=== PATIENT | male | born 2005 | race Caucasian/White ===

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

== ENCOUNTER 2024-03-21 19:27 | Emergency (ER) | payer OTHER, SELFPAY ==
--- OUTSIDE RECORDS SUMMARY | 2024-03-21 19:29 | XMS_ITS | Clinical Summary ---
Author Organization [facility] Address [address] [place] [address] Care Team Providers Care Cover Maker Name Role Phone Armando Vera MD Primary Care Provider [phone] Allergies No known active allergies Medications Medication Sig Dispensed Refills Start Date End Date Status ALBUTEROL IN Inhale into lungs. Active CETIRIZINE HCL (ZYRTEC PO) Take by mouth. Active FLUTICASONE PROPIONATE (FLONASE NA) Apply into the nose. Active FLUoxetine (PROZAC) 20 mg capsule TAKE 1 CAPSULE BY MOUTH AT BEDTIME 08/22/2021 Active albuterol HFA (PROAIR) 90 mcg/actuation oral inhaler as needed 07/12/2015 Active omeprazole (PRILOSEC) 40 mg delayed release capsule Take 1 Capsule (40 mg) by mouth once a day -take 30 mins before dinner 30 Capsule 2 10/01/2021 Active Active Problems Problem Noted Date Diagnosed Date Pilonidal cyst without abscess 08/07/2021 Family History Medical History Relation Name Comments GERD Maternal Grandfather Relation Name Status Comments Maternal Grandfather Social History Tobacco Use Types Packs/Day Years Used Date Smoking Tobacco: Never Assessed Sex and Gender Information Value Date Recorded Sex Assigned at Not on file Gender Identity Not on file Sexual Orientation Not on file Last Filed Vital Signs Vital Sign Reading Time Taken Comments Blood Pressure 121/60 02/01/2022 3:35 PM EST Pulse 100 02/01/2022 3:35 PM EST Temperature 36.4 C (97.5 F) 02/01/2022 3:35 PM EST Respiratory Rate 16 02/01/2022 3:35 PM EST Oxygen Saturation 100% 02/01/2022 3:35 PM EST Inhaled Oxygen Concentration - - Weight 148.7 kg (327 lb 13. 2 oz) 08/29/2022 1:37 PM EDT Height 184.5 cm (6' 0.64) 02/01/2022 1 0:00 AM EST Body Mass Index 43.68 02/01/2022 10:00 AM EST Body Mass Index Percentile 99.84% 08/29/2022 1:3 7 PM EDT Growth Chart: CDC (Boys, 2-2 0 Years) Plan of Treatment Health Maintenance Due Date Last Done Comments COVID-19 Vaccine (2023- season) 2023 08/10/2021, 07/01/2021 Influenza Vaccine (#1) 2023 9, 12/09/2016, 11/25/2013, Additional history exists Pneumococcal Vaccine (Combined) Aged Out 10/01/2005, 01/22/2005, 2004, Additional history exists No longer eligible based on patient's age to complete this topic Care Teams Cover Maker Relationship Specialty Start Date End Date Armando Vera MD [address] [place] [address] PCP - General Pediatrics 07/04/21
--- OUTSIDE RECORDS SUMMARY | 2024-03-21 19:29 | XMS_ITS | Encounter Summary ---
Author Organization [facility] [place] [address] Care Team Providers Care Edge Inker Uppers Name Role Phone Md Day[facility] Primary Care Provider [phone] Reason for Visit * Reason Onset Date Comments VOMITING 03/21/2024 Encounter Details Date Type Department Care Team (Late st Contact Info) Description 03/21/2024 Telephone Call Center [address] [place], [place] [id number] Staff, Support VOMITING Social History Tobacco Use Types Packs/Day Years Used Date Smoking Tobacco: Never Passive Smoke Exposure: Never Smokeless Tobacco: Never Alcohol Use Standard Drinks/Week Comments No 0 (1 standard drink = 0.6 oz pur e alcohol) Substance Use Types Use/Week Comments No Sex and Gender Information Value Date Recorded Sex Assigned at Not on file Gender Identity Not on file Sexual Orientation Not on file documented as of this encounter Miscellaneous Notes * Telephone Encounter - Bruce Moncada RN, R.N. - 03/21/2024 7:34 PM EST ADVICE CALL NOTE Action Requested from Provider: None Guideline Recommended and Member Disposition: [facility] Emergent: (30 min to 2 hours) Telephone advice given AMA Statement for 911/Emergent/Semi-Emergent Patient has refused advice given. The following information was provided: It is possible you are experiencing a harmful medical condition for which the location and/or time frame you want to receive care may not be safe place for your problem. Any delay in care such as waiting for an appointment or being seen at the wrong place could be harmful to yourhealth. It is your right to refuse my recommendation. I just want to be sure you understand. Do youunderstand? Yes Chief Complaint: Mom calling for 18 year old out of town positive for flu Type A c/o vomiting x 2 ,fever 103 10 minutes ago ,on Tamiflu since today .Temp 103.7 when checked again on the phone . Feels lightheaded at times .Unable to keep fluids down . Patient instructions:Advised closest ER or UC with sheet pile driver operator . If emergency call 911. CALLER ADVICE UNDERSTANDING/AGREEMENT: Member given opportunity to ask questions/make comments. Yes Member provided Teach back/ advice instructions. Yes documented in this encounter Plan of Treatment Not on file documented as of this encounter Visit Diagnoses Not on filedocumented in this encounter Care Teams Edge Inker Uppers Relationship Specialty Start Date End Date Md Day[facility] DEPARTMENT OF PEDIATRICS [address] [place] [address] PCP - General Pediatrics 12/11/23 documented as of this encounter
--- OUTSIDE RECORDS SUMMARY | 2024-03-21 19:29 | XMS_ITS | Encounter Summary ---
Author Organization [facility] [place] [address] Care Team Providers Care Spanish Literature Professor Name Role Phone Md Dayne [facility] Primary Care Provider [phone] Reason for Visit * Reason Comments LUMP Per patient, sister noticed bumps on the sides of each foot last night. Patient unsure of how long they have been there. No pain. Encounter Details Date Type Department Care Team (Late st Contact Info) Description 02/13/2024 10:30 AM EST Office Visit [facility] [address] [place] [address] Md Dayne [facility] DEPARTMENT OF PEDIATRICS [address] [place], [place] [id number] GANGLION CYST Social History Tobacco Use Types Packs/Day Years [...] on file documented as of this encounter Last Filed Vital Signs Vital Sign Reading Time Taken Comments Blood Pressure 121/71 02/13/2024 11:01 AM EST Pulse 94 02/13/2024 11:01 AM EST Temperature 36.7 C (98 F) 02/13/2024 11:01 AM EST Respiratory Rate 20 02/13/2024 11:0 1 AM EST Oxygen Saturation 98% 02/13/2024 11: 01 AM EST Inhaled Oxygen Concentration - - Weight 121.5 kg (267 lb 12.8 oz) 2024 11:01 AM EST Height 181.6 cm (5' 11.5) 02/13/2024 1 1:01 AM EST Body Mass Index 36.83 02/13/2024 11:01 AM EST documented in this encounter Patient Instructions * Patient Instructions* Md Dayne [facility] - 02/13/2024 11:28 AM EST Images from the original note were not included. Patient Education [facility] Care Instructions Ganglions in Children: Care Instructions Overview A ganglion is a small sac, or cyst, filled with a clear fluid that is like jelly. A ganglion may look like a bump on the hand or wrist. It also can appear on the feet, ankles, knees, or shoulders. Itis not cancer. A ganglion can grow out of the protective area, or capsule, around a joint. It also can grow on a tendon sheath, which covers the ropelike tendons that connect muscle to bone. A ganglion may hurt or cause numbness if it presses on a nerve. Many ganglions do not need treatment, and they often go away on their own. But if a ganglion hurts,causes numbness, or limits activity, the doctor may want to drain it with a needle and syringe or remove it with minor surgery. Follow-up care is a hardy part of your child's treatment and safety. Be sure to make and go to all appointments, and call your doctor if your child is having problems. It's also a good idea to know your child's test results and keep a list of the medicines your child takes. How can you care for your child at home? Have your child wear a wrist or finger splint as directed by the doctor. It will keep the wrist or hand from moving and help reduce the fluid in the cyst. This may be all your child needs for the ganglion to shrink and go away. Do not smash a ganglion with a book or other heavy object. You may break a bone or otherwise injureyour child's wrist by trying this folk remedy, and the ganglion may return anyway. Do not try to drain the fluid by poking the ganglion with a pin or any other sharp object. You could cause an infection. When should you call for help? Call your doctor now or seek immediate medical care if: Your child has signs of infection, such as: Increased pain, swelling, warmth, or redness. Red streaks leading from the cyst. Pus draining from the cyst. A fever. Watch closely for changes in your child's health, and be sure to contact your doctor if: Your child has increasing pain. Your child's ganglion is getting larger. Your child still has pain or numbness from a ganglion. Where can you learn more? Go to https://[employer].org/health Enter Y986 in the search box to learn more about Ganglions in Children: Care Instructions. Current as of: December 19, 2021 Content Version: 13.6 ?? [employer]. Care instructions adapted under license by your healthcare professional. If you have questions about a medical condition or this instruction, always ask your healthcare professional. [employer] disclaims any warranty or liability for your use of this information. documented in this encounter Progress Notes * Md Dwayne Oscar - 02/13/2024 11:17 AM EST SUBJECTIVE: Erich Cross is a 18 year old old male who presents today brought by self, with complaints of: bumps on feet. Duration: unsure Sister noticed it last night No pain PMHx: negative pertinent to this illness No outpatient medications have been marked as taking for the 02/13/24 encounter (Office Visit) with Md Dwayne Oscar. ALLERGIES: Patient has no known allergies. Review Of Systems: MUSCULOSKELETAL: bumps on top-lateral side of feet, Denies: pain OBJECTIVE: BP 121/71 (BP Location: LA-LEFT ARM, BP Patient Position: SITTING, Cuff Size: Large Adult) Pulse 94 Temp 36.7 ??C (98 ??F) (Oral) Resp 20 Ht 1.816 m (5' 11.5) Wt 121.5 kg (267 lb 12.8 oz) SpO2 98% BMI 36.83 kg/m?? Body mass index is 36.83 kg/m??. General: well appearing MS: With plantar flexion of feet can see a bump on each feet - superior-lateral. Non-tender, not firm Erich was seen today for lump. Diagnoses and all orders for this visit: GANGLION CYST Advised observation Follow up if becomes painful or uncomfortable - will refer to ortho Dwayne Oscar MD 02/13/2024 11:17 AM * Taiwo Zaragoza RN - 02/13/2024 10:59 AM EST PROACTIVE CARE ACTIONS Erich Cross is a 18 year old male Chief Complaint Patient presents with LUMP Per patient, sister noticed bumps on the sides of each foot last night. Patient unsure of how long they have been there. No pain. Wt Readings from Last 3 Encounters: 02/13/24 121.5 kg (267 lb 12.8 oz) (>99%, Z= 2.67)* 10/04/23 141.1 kg (311 lb) (>99%, Z= 3.17)* 07/21/23 144.1 kg (317 lb 11.2 oz) (>99%, Z= 3.22)* * Growth percentiles are based on CDC (Boys, 2-20 Years) data. GENERAL: Patient verified with two patient identifiers. Allergies including drugs, food, and latex reviewed and updated. Blood pressure %mikey are not available for patients who are 18 years or older. TOBACCO USE/EXPOSURE TO SMOKE: No tobacco use or exposure to second hand smoke TAIWO ZARAGOZA RN 02/13/2024 11:05 AM documented in this encounter Plan of Treatment Not on file documented as of this encounter Visit Diagnoses Diagnosis GANGLION CYST documented in this encounter Care Teams Spanish Literature Professor Relationship Specialty Start Date End Date Md Dwayne Oscar DEPARTMENT OF PEDIATRICS [address] [facility] [address] PCP - General Pediatrics 12/11/23 documented as of this encounter
--- OUTSIDE RECORDS SUMMARY | 2024-03-21 19:29 | XMS_ITS | Patient Health Record ---
Author Organization [facility] Address [address] [place] [address] Care Team Providers Care Program Admin Name Role Phone Jose A Augustine Primary Care Provider ALLERGIES No Known Allergies REASON FOR REFERRAL No Information MEDICATIONS Medication SIG (Take, Route, Fr equency, Duration) Notes Start Date End Date Status Albuterol Active FLUoxetine HCl 20 MG 1 capsule Orally be dtime for 30 day(s) Active SOCIAL HISTORY Sex Assigned At : Social History Observation Description Sex Assigned At Unknown Alcohol Screen (Audit-C) Question Answer Notes Did you have a drink containing alcohol in the p ast year? No Points 0 Interpretation Negative Tobacco use other than smoking: Question Answer Notes Are you an other tobacco user? No Section Notes: _ __ _ Erich lives at home with mother, maternal grandparents. He has a sister who is 18 years old at time of initial assessment. She is in collage. Erich's parents when he was 11 years old. Father left the home when Erich was 7 years old. Erich visits his father once every other week, but the relationship is distan. _ _- FALL 2021 : main [employer] at [email or web address]. Plays [employer] & track and field. He is a member of [employer]. _ __ _ Aspires to be in the future : No sure ... no major ideas. _ _- THREE WISHES : 1) Can not. think of anything _ _- _ __ _ Erich lives at home with mother, maternal grandparents. He has a sister who is 18 years old at time of initial assessment. She is in collage. Erich's parents when he was 11 years old. Father left the home when Erich was 7 years old. Erich visits his father once every other week, but the relationship is distan. _ _- FALL 2021 : main stream at [facility] [employer]. Plays [employer] & track and field. He is a member of [employer]. _ __ _ Aspires to be in the future : No sure ... no major ideas. _ _- THREE WISHES : 1) Can not. think of anything _ _- _ __ _ Erich lives at home with mother, maternal grandparents. He has a sister who is 18 years old at time of initial assessment. She is in collage. Erich's parents when he was 11 years old. Father left the home when Erich was 7 years old. Erich visits his father once every other week, but the relationship is distan. _ _- Accepted to [employer] in [place] with football scholarship. Plays [employer] & [employer] and field. He is a member of [employer]. _ __ _ _ __ _ Erich lives at home with mother, maternal grandparents. He has a sister who is 18 years old at time of initial assessment. She is in collage. Erich's parents when he was 11 years old. Father left the home when Erich was 7 years old. Erich visits his father once every other week, but the relationship is distan. _ _- SPRING 2021 : main stream at [facility] [employer]. Plays [employer] & track and field. He is a member of [employer]. _ __ _ Aspires to be in the future : No sure ... no major ideas. _ _- THREE WISHES : 1) Can not. think of anything _ _- _ __ _ Erich lives at home with mother, maternal grandparents. He has a sister who is 18 years old at time of initial assessment. She is in collage. Erich's parents when he was 11 years old. Father left the home when Erich was 7 years old. Erich visits his father once every other week, but the relationship is distan. _ _- SPRING 2021 : main [employer] at [employer] [facility]. [employer]ays [employer]. He is a member of [employer]. _ __ _ Aspires to be in the future : No sure ... no major ideas. _ _- THREE WISHES : 1) Can not. think of anything _ _- _ __ _ Erich lives at home with mother, maternal grandparents. He has a sister who is 18 years old at time of initial assessment. She is in collage. Erich's parents when he was 11 years old. Father left the home when Erich was 7 years old. Erich visits his father once every other week, but the relationship is distan. _ _- SPRING 2021 : main stream at [facility]. Plays [employer]. He is a member of [employer]. _ __ _ Aspires to be in the future : No sure ... no major ideas. _ _- THREE WISHES : 1) Can not. think of anything _ _- _ __ _ Erich lives at home with mother, maternal grandparents. He has a sister who is 18 years old at time of initial assessment. She is in collage. Erich's parents when he was 11 years old. Father left the home when Erich was 7 years old. Erich visits his father once every other week, but the relationship is distan. _ _- SPRING 2021 : main stream at [facility]. Plays [employer] field. He is a member of [employer]. _ __ _ Aspires to be in the future : No sure ... no major ideas. _ _- THREE WISHES : 1) Can not. think of anything _ _- _ __ _ Erich lives at home with mother, maternal grandparents. He has a sister who is 18 years old at time of initial assessment. She is in collage. Erich's parents when he was 11 years old. Father left the home when Erich was 7 years old. Erich visits his father once every other week, but the relationship is distan. _ _- SPRING 2021 : main stream at [facility]. Plays [employer] and field. He is a member of [employer]. _ __ _ Aspires to be in the future : No sure ... no major ideas. _ _- THREE WISHES : 1) Can not. think of anything _ _- _ __ _ Erich lives at home with mother, maternal grandparents. He has a sister who is 18 years old at time of initial assessment. She is in collage. Erich's parents when he was 11 years old. Father left the home when Erich was 7 years old. Erich visits his father once every other week, but the relationship is distan. _ _- FALL 2021 : main stream at [facility] [employer]. Plays [employer]. He is a member of [employer]. _ __ _ Aspires to be in the future : No sure ... no major ideas. _ _- THREE WISHES : 1) Can not. think of anything _ _- _ __ _ Erich lives at home with mother, maternal grandparents. He has a sister who is 18 years old at time of initial assessment. She is in collage. Erich's parents when he was 11 years old. Father left the home when Erich was 7 years old. Erich visits his father once every other week, but the relationship is distan. _ _- SPRING 2021 : main stream at [email or web address]. Plays [employer]. He is a member of [employer]. _ __ _ Aspires to be in the future : No sure ... no major ideas. _ _- THREE WISHES : 1) Can not. think of anything _ _- PROBLEMS Problem Type ICD Code Onset Dates Problem Status W/U Status Risk SNOMED Code Notes Problem SNOW (generalized anxiety disorder) (F41.1) Active confirmed 87500833 Problem Panic disorder with agoraphobia (F40.01) Active confirmed 65620174 Problem Attention deficit disorder (ADD) without hyperactivity (F98.8) Active confirmed 55471008 Problem Major depressive disorder, recurrent, severe with psychotic features (F33.3) Active confirmed [id number] PLAN OF TREATMENT No Information Insurance Providers Payer Name Payer Address Payer Phone Subscriber Number Group Number Insured Name Patient Relationship to Insured Coverage Start Date Coverage End Date [facility] [id number] [place] [address] [id number] Erich Cross Self - patient is the insured [facility] [address] [address] [facility] [place] [address] [id number] Erich Cross Self - patient is the insured MEDICAL (GENERAL) HISTORY Medical History History ICD Code Asthma
--- OUTSIDE RECORDS SUMMARY | 2024-03-21 19:29 | XMS_ITS | Clinical Summary ---
Author Organization [facility] [place] [address] Care Team Providers Care Workers Compensation Analyst Name Role Phone Md Dayne [facility] Primary Care Provider [phone] Source Comments NOTE: The information displayed by Care Everywhere is extracted from the complete medical record and may not identify all current or past patient conditions.[facility] Allergies No known active allergies Medications Medication Sig Dispensed Refills Start Date End Date Status FLUoxetine (PROZAC) 20 mg Oral CapIndications:LEE ANN OR DEPRESSIVE DISORDER, RECURRENT EPISODE, MILD Take 1 capsule by mouth daily 30 capsule 3 08/14/2022 Active Albuterol (PROAIR/PROVENTIL/ VENTOLIN) 90 mcg/actuation Inhl HFAAIndications:IN TERMITTENT ASTHMA W ACUTE EXACERBATION Shake well and inhale 4 puffs by mouth every 4 hours as needed for cough or wheezing. 13.4 g 08/18/2023 5 Active EPINEPHrine (ADRENACLICK/EPIPE N) 0.3 mg/0.3 mL Inj AutoInjectorIndica tions:ALLERGIC REACTION, INIT Inject contents of 1 pen intramuscularly into upper thigh as needed for severe allergic reaction. Repeat dose if needed 4 Each 2 08/18/2023 Active hydrOXYzine HCL (ATARAX) 25 mg Oral TabIndications:PRU RITUS Take 1 to 2 tablets by mouth 3 to 4 times a day as needed 30 tablet 10/04/2023 08/24/202 5 Active Active Problems Problem Noted Date Diagnosed Date BMI PEDS >=95 PERCENTILE 09/12/2010 INTERMITTENT ASTHMA 04/22/2010 ALLERGIC RHINITIS 02/28/2010 Resolved Problems Problem Noted Date Diagnosed Date Resolved Date PENILE PAIN 03/16/2014 10/21/2014 FAMILY CIRCUMSTANCE 03/15/2014 08/07/19 16 Overview (03/15/2014): Sees dad ~every 3 weeks. LEFT LOWER LEG CONTUSION 11/25/201312/2014 HEARING PROBLEM 09/01/2013 08/07/2015 CONSTIPATION 04/07/2011 08/07/2015 Encounters Date Type Department Care Team Description 03/21/2024 Telephone Call Center [address], [place] [id number] Staff, Support VOMITING 02/13/2024 10:30 AM EST Office Visit [facility] [address] [place], [place] [id number] Md Dayne [facility] GANGLION CYST from Last 3 Months Immunizations Name Administration Dates Next Due COVID-19 mRNA, LNP-S, PF 12y rs-Adult (Pfizer-BioNTech, hiwot-sucrose) [place] [facility] 08/10/2021,07/01/2021 DTaP (Diphtheria, Tetanus, a cellular Pertussis) 08/01/2009,10/01/2005,01/22/2005,10/12,2004 HAV ped/adol 2 dose reno (Hepatitis A) 06/30/2006 ,08/02/2005 HBV (Hepatitis B) 04/22/2005,2004,06/30/19 05 HIB PRP-OMP (Haemophilus influenzae b) 0 10/01/2005,01/22/2005,2004,08/11 INF (Influenza) unspecified formulation 01/22/20 06,01/22/2005 INFS Pres Free 6mos-Adult (F lulaval Quadrivalent) (Influenza) 03/05/2018 INFS pres free 6mos-adult (F luarix quadrivalent) (influenza) 12/09/2016 INFs pres free 3yrs-adult (F LUARIX) (Influenza) 11/07/2012 INFs pres free 3yrs-adult (F LUZONE) (Influenza) 11/25/2013 MEN-ACYW (MENVEO) (meningoco ccal oligosaccharide ACYW-135) 08/28/2020,09/09/2016 MMR (Measles, Mumps, Rubella) 07/25/2008, 006 PCV7 (PREVNAR) (Pneumococcal conjugate, 7 valent) 10/01/2005,01/22/2005,2004,08/11 RONI-IPV (Polio, Inactivated virus) 08/01,04/22/2005,2004,08/11 Tdap (ADACEL) (Tetanus, diph theria, acellular pertussis) 09/09/2016 JA (Varicella, chickenpox) 07/25/2008, Family History Medical History Relation Comments Diabetes Maternal Grandfather Hypertension Maternal Grandfather Asthma Maternal Grandmother Hypertension Maternal Grandmother Hypertension Paternal Grandfather Hypertension Paternal Grandmother Relation Status Comments Father Alive Maternal Grandfather Alive Maternal Grandmother Alive Mother Alive Paternal Grandfather Alive Paternal Grandmother Alive Sister Alive Social History Tobacco Use Types Packs/Day Years Used Date Smoking Tobacco: Never Passive Smoke Exposure: Never Smokeless Tobacco: Never Tobacco Cessation:Counseling Given: Not Answered Alcohol Use Standard Drinks/Week Comments No 0 [...] Mass Index 36.83 02/13/2024 11:01 AM EST Plan of Treatment Health Maintenance Due Date Last Done Comments IMM HPV (9- YRS) (1 - Male 3-dose series) 06/30/2019 [place] WELL VISIT FOR 3-21 YEARS 08/15/202306/2022, 08/28/2020, 09/20/2019, Additional history exists IMM COVID-19 (6 MO AND OLDER ) (3 - 2023-25 season) 2023 08/10/2021, 07/01/2021 IMM INFLUENZA (6 MO AND OLDE R) (#1) 10/12/2023 03/05/2018, 12/09/2016, 11/25/2013, Additional history exists IMM DTAP,TDAP,TD (42 DAYS-12 0 YRS) (7 - Td or Tdap) 09/09/2026 09/09/2016, 08/01/2009, 10/01/2005, Additional history exists Care Teams Workers Compensation Analyst Relationship Specialty Start Date End Date Md Dayne [facility] DEPARTMENT OF PEDIATRICS [address] [place] [address] PCP - General Pediatrics 12/11/23
--- OUTSIDE RECORDS SUMMARY | 2024-03-21 19:29 | XMS_ITS ---
Author Organization [facility] [place] [address] Care Team Providers Care Hot Roll Laminator Name Role Phone Unavailable Unavailable Unavailable
--- OUTSIDE RECORDS SUMMARY | 2024-03-21 19:29 | XMS_ITS | Encounter Summary ---
Author Organization [facility] [place] [address] Care Team Providers Care Aba Therapist Name Role Phone Md Polina Dwyer M.D. Primary Care Pr ovider Md Armando Vera M.D. Primary Care Provider Diana vailable Adult Hct, [place] Primary Care Provider [phone] Adult Hct, [place] Primary Care Provider [phone] Md Dayne [facility] Primary Care Provider [phone] Reason for Visit * Reason Onset Date Comments PRESCRIPTION REFILL REQUESTED 12/12/2019 Encounter Details Date Type Department Care Team (Late st Contact Info) Description 12/12/2019 Telephone [facility] [address] [place] [id number] Md Polina Dwyer M.D. Pediatrics Health Care Team A [facility] [place] [address] PRESCRIPTION REFILL REQUESTED Social History Tobacco Use Types Packs/Day Years Used Date Smoking Tobacco: Never Smokeless Tobacco: Never Alcohol Use Standard Drinks/Week Comments No 0 (1 standard drink = 0.6 oz pur e alcohol) Substance Use Types Use/Week Comments No Sex and Gender Information Value Date Recorded Sex Assigned at Not on file Gender Identity Not on file Sexual Orientation Not on file documented as of this encounter Miscellaneous Notes * Telephone Encounter - Narcisa Mckenna, P.A. - 12/15/2019 10:03 AM EST New prescription sent with appropriate strength. * Telephone Encounter - Jayant Batista - 12/12/2019 2:55 PM EST Patient's mother is concerned about the epipens that were prescribed. She states that the box readsthat it is for a child weighing less than 60 pounds. Her son is 250 pounds. Thanks, Jayant Batista, [facility] Support Services documented in this encounter Plan of Treatment Not on file documented as of this encounter Visit Diagnoses Diagnosis ALLERGIC REACTION, INIT documented in this encounter Care Teams Aba Therapist Relationship Specialty Start Date End Date Md Polina Dwyer M.D. Pediatrics Health Care Team A [address] [place] [phone] PCP - General 02/15/16 10/12/20 Md Armando Vera M.D. Pediatrics Health Care Team A [address] [place] [phone] PCP - General Pediatrics 10/13/20 4 Adult Hct, [facility] Internal Medicine Health Care Team A [address] [place] [address] PCP - General Internal Medicine 09/26/23 09/26/23 Adult Hct, [place] Internal Medicine Health Care Team A [facility] [place], [place], [place] [address] PCP - General Internal Medicine 09/27/23 12/10/23 Md Dayne [facility] DEPARTMENT OF PEDIATRICS [address] [place] [address] PCP - General Pediatrics 12/11/23 documented as of this encounter
--- OUTSIDE RECORDS SUMMARY | 2024-03-21 19:30 | XMS_ITS | Encounter Summary ---
Author Organization [facility] [place] [address] Care Team Providers Care E Commerce Solution Architect Name Role Phone Md Armando Vera M.D. Primary Care Provider Diana vailable Adult Hct, [place] Primary Care Provider [phone] Adult Hct, [place] Primary Care Provider Md Dayne [facility] Primary Care Provider [phone] Encounter Details Date Type Department Care Team (Late st Contact Info) Description 06/03/2021 Telephone Call Center [address] [place] [address] Staff, Support Social History Tobacco Use Types Packs/Day Years [...] on file documented as of this encounter Plan of Treatment Not on file documented as of this encounter Visit Diagnoses Not on filedocumented in this encounter Care Teams E Commerce Solution Architect Relationship Specialty Start Date End Date Md Armando Vera M.D. PCP - General Pediatrics 10/13/20 09/25/23 Adult Hct, [facility] Health Care Team A [address] [place] [address] PCP - General Internal Medicine 09/26/23 09/26/23 Adult Hct, [place] Internal Medicine Health Care Team A [facility] [place], [place], [place] [address] PCP - General Internal Medicine 09/27/23 12/10/23 Md Dwayne Oscar DEPARTMENT OF PEDIATRICS [address] [place] [address] PCP - General Pediatrics 12/11/23 documented as of this encounter
--- OUTSIDE RECORDS SUMMARY | 2024-03-21 19:30 | XMS_ITS | Encounter Summary ---
Author Organization [facility] [place] [address] Care Team Providers Care Rubber Tubing Backer Name Role Phone Md Armando Vera M.D. Primary Care Provider Diana vailable Adult Hct, [place] Primary Care Provider [phone] Adult Hct, [place] Primary Care Provider Md Dayne [facility] Primary Care Provider Encounter Details Date Type Department Care Team (Late st Contact Info) Description 08/06/2021 Refill [facility] [address] [place] [address] Md Deyvi Arredondo M.D. Department of Pediatrics [address] [place] [address] Medications Social History Tobacco Use Types Packs/Day Years [...] as of this encounter Visit Diagnoses Diagnosis PILONIDAL CYST documented in this encounter Care Teams Rubber Tubing Backer Relationship Specialty Start Date End Date Md Armando Vera M.D. PCP - General Pediatrics 10/13/20 09/25/23 Adult Hct, [facility] Internal Medicine Health Care Team A [address] [place] [address] PCP - General Internal Medicine 09/26/23 09/26/23 Adult Hct, [facility] Medicine Health Care Team A [facility] [place], [place], [place] [address] PCP - General Internal Medicine 09/27/23 12/10/23 Md Dayne [facility] DEPARTMENT OF PEDIATRICS [address] [place] [address] PCP - General Pediatrics 12/11/23 documented as of this encounter
--- OUTSIDE RECORDS SUMMARY | 2024-03-21 19:30 | XMS_ITS | Encounter Summary ---
Author Organization [facility] [place] [address] Care Team Providers Care Licensed Insurance Sales Agent Name Role Phone Md Armando Vera M.D. Primary Care Provider Diana vailable Adult Hct, [place] Primary Care Provider [phone] Adult Hct, [place] Primary Care Provider Md Dayne [facility] Primary Care Provider Reason for Referral * Outpatient Service (Urgent) - Closed Specialty Diagnoses / Procedures Referred By Tj salas Referred To Contact Orthopaedics, Medicine Diagnoses RIGHT KNEE MEDIAL COLLATERAL LIGAMENT TEAR, INIT Procedures REFERRAL ORTHOPEDIC Md Armando Vera M.D. Pediatrics Health Care Team A [address] [place] [address] Referral ID Status Reason Start Date Expiration Date V isits Requested Visits Authorized [id number] Closed Specialty Services Required 11/20/2020 05/19/2021 1 1 Encounter Details Date Type Department Care Team (Late st Contact Info) Description 11/20/2020 Orders Only [facility] [address] [place] [address] Md Armando Vera M.D. RIGHT KNEE MEDIAL COLLATERAL LIGAMENT TEAR, INIT Social History Tobacco Use Types Packs/Day Years [...] as of this encounter Visit Diagnoses Diagnosis RIGHT KNEE MEDIAL COLLATERAL LIGAMENT TEAR, INIT documented in this encounter Care Teams Licensed Insurance Sales Agent Relationship Specialty Start Date End Date Md Armando Vera M.D. PCP - General Pediatrics 10/13/20 09/25/23 Adult Hct, [facility] Care Team A [address] [place] [address] PCP - General Internal Medicine 09/26/23 09/26/23 Adult Hct, [facility] Health Care Team A [address] [place] [address], [place] [address] PCP - General Internal Medicine 09/27/23 12/10/23 Md Dayne [facility] DEPARTMENT OF PEDIATRICS [address] [place] [address] PCP - General Pediatrics 12/11/23 documented as of this encounter
--- OUTSIDE RECORDS SUMMARY | 2024-03-21 19:30 | XMS_ITS | Encounter Summary ---
Author Organization [facility] [place] [address] Care Team Providers Care Gas And Oil Servicer Name Role Phone Md Armando Vera M.D. Primary Care Provider Diana vailable Adult Hct, [place] Primary Care Provider [phone] Adult Hct, [place] Primary Care Provider [phone] Md Dayne [facility] Primary Care Provider Encounter Details Date Type Department Care Team (Late st Contact Info) Description 12/07/2020 Orders Only [facility] [address] [place] [address] Md Marlo Petersen Department of Orthopedics [address] [place] [phone] RIGHT KNEE MEDIAL COLLATERAL LIGAMENT TEAR, INIT [...] INIT documented in this encounter Care Teams Gas And Oil Servicer Relationship Specialty Start Date End Date Md Armando Vera M.D. PCP - General Pediatrics 10/13/20 09/25/23 Adult Hct, [facility] Health Care Team A [address] [place] [address] PCP - General Internal Medicine 09/26/23 09/26/23 Adult Hct, [facility] Health Care Team A [facility] [place], [place], [place] [address] PCP - General Internal Medicine 09/27/23 12/10/23 Md Dayne [facility] DEPARTMENT OF PEDIATRICS [address] [place] [address] PCP - General Pediatrics 12/11/23 documented as of this encounter
--- OUTSIDE RECORDS SUMMARY | 2024-03-21 19:30 | XMS_ITS | Encounter Summary ---
Author Organization [facility] [place] [address] Care Team Providers Care Customer Care Professional Name Role Phone Md Armando Vera M.D. Primary Care Provider Diana vailable Adult Hct, [place] Primary Care Provider [phone] Adult Hct, [place] Primary Care Provider Md Dayne [facility] Primary Care Provider Encounter Details Date Type Department Care Team (Late st Contact Info) Description 10/01/2021 Orders Only [facility] [address] [place] [phone] Md Bert Shea M.D. Pediatrics Health Care Team A [address] [place] [address], [address] [place] [address] ACUTE SINUSITIS Social History Tobacco Use Types Packs/Day Years [...] as of this encounter Visit Diagnoses Diagnosis ACUTE SINUSITIS documented in this encounter Care Teams Customer Care Professional Relationship Specialty Start Date End Date Md Armando Vera M.D. PCP - General Pediatrics 10/13/20 09/25/23 Adult Hct, [facility] Internal Medicine Health Care Team A [address] [place] [address] PCP - General Internal Medicine 09/26/23 09/26/23 Adult Hct, [facility] Medicine Health Care Team A [facility] [place], [place], [place] [address] PCP - General Internal Medicine 09/27/23 12/10/23 Md Dayne [facility] DEPARTMENT OF PEDIATRICS [address] [place] [address] PCP - General Pediatrics 12/11/23 documented as of this encounter
--- OUTSIDE RECORDS SUMMARY | 2024-03-21 19:30 | XMS_ITS | Encounter Summary ---
Author Organization [facility] [place] [address] Care Team Providers Care President + Publisher Name Role Phone Md Armando Vera M.D. Primary Care Provider Diana vailable Adult Hct, [place] Primary Care Provider [phone] Adult Hct, [place] Primary Care Provider Md Dayne [facility] Primary Care Provider Reason for Visit * Reason Onset Date Comments VOMITING 09/11/2021 Encounter Details Date Type Department Care Team (Late st Contact Info) Description 09/11/2021 Telephone Call Center [facility] [place], [place] [id number] Staff, Support VOMITING Social History Tobacco Use [...] encounter Miscellaneous Notes * Telephone Encounter - Nika Osuna RN - 09/11/2021 6:33 AM EDT ADVICE CALL NOTE Action Requested from Provider: None Guideline Recommended and Member Disposition: [facility] Routine Home [place] - with Office visit (24 hours plus up to one week) Advised Office Visit Future Appointments Date Time Provider Department Center 09/11/2021 10:10 AM Md Deyvi Arredondo M.D. [facility] Chief Complaint: Associated signs and symptoms (onset, duration, pattern): Mother calling for [place]. Had protein shake and banana this am and vomited. Member taken off of Prozac as it can cause gastritis. Home treatment tried? Current weight PMH/PSH review: MEDS review: ALLERGIES: Reviewed in its section. Patient instructions: Per [facility] Advice RN available 02/09 including weekends and holidays CALLER ADVICE UNDERSTANDING/AGREEMENT: Patient verbalizes understanding and agreement with this plan. Yes Member given opportunity to ask questions/make comments. Yes Call Back Instructions given and reviewed with caller. Yes Member provided Teach back/ advice instructions. Yes documented in this encounter Plan of Treatment Not on file documented as of this encounter Visit Diagnoses Not on filedocumented in this encounter Care Teams President + Publisher Relationship Specialty Start Date End Date Md Armando Vera M.D. PCP - General Pediatrics 10/13/20 09/25/23 Adult Hct, [facility] Health Care Team A [address] [place] [address] PCP - General Internal Medicine 09/26/23 09/26/23 Adult Hct, [facility] Health Care Team A [address] [place] [address], [place] [address] PCP - General Internal Medicine 09/27/23 12/10/23 Md Nora OscarSteph DEPARTMENT OF PEDIATRICS [address] [place] [address] PCP - General Pediatrics 12/11/23 documented as of this encounter
--- OUTSIDE RECORDS SUMMARY | 2024-03-21 19:30 | XMS_ITS | Continuity of Care Document ---
Author Organization [facility] Address [address] [place] [address] Phone Care Team Providers Care Automotive Service Consultant Name Role Phone Unavailable Unavailable Unavailable Allergies, Adverse Reactions, Alerts Substance Reaction Status Criticality No Known Allergies Active No Inform ation Medications Medication Instructions Dosage Effective Dates (start - stop) Status Comments FLONASE (unknown strength) Not Available - Active ZYRTEC (unknown strength) Not Available - Active QVAR (unknown strength) Not Available - Active PROAIR HFA (unknown strength) Not Available - Active MIRALAX (unknown strength) Not Available - Active Procedures Procedure Date Offic Cons New/estab Mod-hi 60 14 Ua Dip Stik/tablet; Wo Micro A 14 Level 4 - New Patient Advance Directives Directive Yes / No Effective Date File Name No Information Encounters Encounter Description Practice Location Reason(s) For Visit Diagnoses Date Provider Providers Copied on Encounter Offic Cons New/estab Mod-hi 60 [facility], [address] [place], [place], [id number], tel:[phone] [facility] 93 Penile concerns (peds) (chief complaint) Penile Pain No Information Referring Provider: Gamal Chong, [address] [place], [address]. tel:[phone] Family History Family Member Type Diagnosis Age At Onset No Information Payers Payer name Insurance type Covered democrat ID Trena slater(s) [employer] [facility] [id number] Social History Type Description Quantity Date Captured Comments Alcohol Use Details Unknown Caffeine Use Details Unknown Tobacco Use Status No Information Smoking Status No Information Sex Male Vital Signs Date / Time: Height Weight BMI Pulse Rate Blood Pressure Temperature Respiratory Rate Body Surface Area Head Circumference Head Circ. Percentile Wt./[place]. Percentile BMI percentile Pulse Ox Inhaled Ox 10:20 AM 58.50 in 63.503 kg (140.00 lbs) 28.7 6 kg/m eter (2) 85 /min 96/60 mm[Hg] 99 Chief Complaint And Reason For Visit From encounter dated '02/09/2014 09:50'. Penile concerns (peds) (chief complaint). Description: The patient is being evaluated for Penile concerns (peds). The problem was noted by the patient. The concerns began 4 weeks ago. The problem is perceived as mild and improved. He was born full term. The patient has a history of voiding problems. There is no history of skin infections or penile infections. Associated symptoms include penile pain. Pertinent negatives include hematuria, urinary urgency, urinary hesitancy and urinary straining.Additional information: Patient with penile pain with voiding x a few weeks. Worked up for UTI but was negative. Reports daily BM, normal stream. HAs gotten a bit better since soccer over. Reason For Referral Reason For Referral No Information History Of Present Illness Encounter Date Complaint History Of Prese nt Illness Penile concerns (peds) The patie nt is being evaluated for Penile concerns (peds). The problem was noted by the patient. The concerns began 4 weeks ago. The problem is perceived as mild and improved. He was born full term. The patient has a history of voiding problems. There is no history of skin infections or penile infections. Associated symptoms include penile pain. Pertinent negatives include hematuria, urinary urgency, urinary hesitancy and urinary straining. Additional information: Patient with penile pain with voiding x a few weeks. Worked up for UTI but was negative. Reports daily BM, normal stream. HAs gotten a bit better since soccer over. Functional Status Date Functional Assessmen t No Information Instructions Date Instruction Additional Infor zara 1. Conservative michaela ures recommended: daily BM, may need miralax, increase fluid intake, showers instead of baths2. No further imaging or cystoscopy recommended at this time. Related to Penile Pain Assessments Type Assessment Date assessment Penile Pain impression Penile pain, possibl y due to urethritis or penile irritation during soccer Mental Status Date Cognitive Assessment Orientation - [place] ed to time, place, person, situation.Normal Orientation Patient Care Teams Name Effective Dates (start - stop) Status Members No Information
--- OUTSIDE RECORDS SUMMARY | 2024-03-21 19:30 | XMS_ITS | Clinical Summary ---
Author Organization [facility] Address [place], [place] [address] Care Team Providers Care Title Checker Name Role Phone Pcp, No Primary Care Provider Unavailabl e Social History Tobacco Use Types Packs/Day Years Used Date Smoking Tobacco: Never Assessed Sex and Gender Information Value Date Recorded Sex Assigned at Not on file Legal Sex Male 12:46 PM CDT Gender Identity Not on file Sexual Orientation Not on file Plan of Treatment Health Maintenance Due Date Last Done Comments Well Child Check for age 3-20 05/31/2007 Tdap 06/30/2015 Depression screening for age 12+ 2016 HIV for age 15-65 06/30/2019 HPV series for age 9-26 (1 - Male 3-dose series) 06/30/2019 BMI (ht and wt on same day) for age 18+ 2022 Hepatitis C screening for age 18-79 2022 COVID-19 vaccine series ( season) 2023 Influenza for age 9-49 10/12/2023 Meningococcal series for age 11-21 Aged Out No longer eligible based on patient's age to complete this topic Pneumococcal series for age 6-49 Aged Out No longer eligible based on patient's age to complete this topic Insurance [employer] PPO Care Teams Title Checker Relationship Specialty Start Date End Date Pcp, No . PCP - General 09/25/22
--- OUTSIDE RECORDS SUMMARY | 2024-03-21 19:30 | XMS_ITS | Patient Health Record ---
Author Organization [facility], Address [address] [place] [address] Care Team Providers Care Engraver Name Role Phone Tyler TAYLOR, Matt Primary Care Provider Unavailab yola De Jesus MD, Shani Unavailable Reason For Referral No Information Medications Medication SIG (Take, Route, Frequency, Duration) Notes Start Date End Date Status Zyrtec Allergy 10 MG 1 tablet as needed Orally Once a day 07/12/2015 Active Flonase 50 mcg 1-2 sprays intra jody ally once a day Active ProAir HFA 108 (90 Base) MCG/ACT 2 puffs as needed Inhalation every 4 hrs 07/12/2015 Active Qvar 80 80 MCG/ACT 1 puff Inhalation Tw ice a day 07/12/2015 Active Immunizations Vaccine Route Administration Date Status Comme nts Influenza 3yrs > over Unknown 07/12/2015 Refused Problems Problem Type SNOMED Code ICD Code Onset Dates Problem Status W/U Status Risk Notes Problem 84541374 Allergic rhiniti s due to pollen (J30.1) Active confirmed Problem 712823730 Mild persistent asthma, uncomplicated (J45.30) Active confirmed Problem 782087987 Allergic rhiniti s due to dust mite (J30.89) Active confirmed Plan Of Treatment No Information Insurance Providers Payer Name Payer Address Payer Phone Subscriber Number Group Number Insured Name Patient Relationship to Insured Coverage Start Date Coverage End Date [facility] [address] [place] [address] [phone] [id number] Erich Cross Self - patient is the insured 6 Medical (General) History Medical History History ICD Code asthma allergic rhinitis
--- OUTSIDE RECORDS SUMMARY | 2024-03-21 19:30 | XMS_ITS | Encounter Summary ---
Author Organization [facility] [place] [address] Care Team Providers Care Anglesmith Helper Name Role Phone Md Armando Vera M.D. Primary Care Provider Diana vailable Adult Hct, [place] Primary Care Provider [phone] Adult Hct, [place] Primary Care Provider [phone] Md Dayne [facility] Primary Care Provider [phone] Encounter Details Date Type Department Care Team (Late st Contact Info) Description 08/02/2021 Refill [facility] [address] [place] [address] Md Deyvi Arredondo M.D. Department of Pediatrics [address] [place] [address] Medications Social History Tobacco Use [...] CYST documented in this encounter Care Teams Anglesmith Helper Relationship Specialty Start Date End Date Md Armando Vera M.D. PCP - General Pediatrics 10/13/20 09/25/23 Adult Hct, [facility] Internal Medicine Health Care Team A [address] [place] [address] PCP - General Internal Medicine 09/26/23 09/26/23 Adult Hct, [facility] Medicine Health Care Team A [facility] [place], [place], [place] [address] PCP - General Internal Medicine 09/27/23 12/10/23 Md Dayne [facility] DEPARTMENT OF PEDIATRICS [address] [place] [address] PCP - General Pediatrics 12/11/23 documented as of this encounter
[2024-03-21 19:51] VITALS: BP 100/50; PULSE 126; RESP 18; TEMP 39.2; O2SAT 95; BMI 33.5
--- OUTSIDE RECORDS SUMMARY | 2024-03-21 20:20 | XMS_ITS | Encounter Summary ---
Author Organization [facility] [place] [address] Care Team Providers Care Senior Applications Analyst Name Role Phone Md Polina Dwyer M.D. Primary Care Pr ovider Md Armando Vera M.D. Primary Care Provider Diana vailable Adult Hct, [place] Primary Care Provider [phone] Adult Hct, [place] Primary Care Provider [phone] Md Dayne [facility] Primary Care Provider [phone] Reason for Visit * Reason Onset Date Comments PRESCRIPTION REFILL REQUESTED 12/12/2019 Encounter Details Date Type Department Care Team (Late st Contact Info) Description 12/12/2019 Telephone [facility] [address] [place] [phone] Md Polina Dwyer M.D. Pediatrics Health Care Team A [facility] [place] [address] PRESCRIPTION REFILL REQUESTED Social History [...] son is 250 pounds. Thanks, Jayant Batista, [facility] Support Services documented in this encounter Plan of Treatment Not on file documented as of this encounter Visit Diagnoses Diagnosis ALLERGIC REACTION, INIT documented in this encounter Care Teams Senior Applications Analyst Relationship Specialty Start Date End Date Md Polina Dwyer M.D. Pediatrics Health Care Team A [address] [place] [address] PCP - General 02/15/16 10/12/20 Md Armando Vera M.D. Pediatrics Health Care Team A [address] [place] [phone] PCP - General Pediatrics 10/13/20 4 Adult Hct, [facility] Internal Medicine Health Care Team A [address] [place] [address] PCP - General Internal Medicine 09/26/23 09/26/23 Adult Hct, [place] [facility] Health Care Team A [facility] [place], [place], [place] [address] PCP - General Internal Medicine 09/27/23 12/10/23 Md Dayne [facility] DEPARTMENT OF PEDIATRICS [address] [place] [address] PCP - General Pediatrics 12/11/23 documented as of this encounter
--- OUTSIDE RECORDS SUMMARY | 2024-03-21 20:21 | XMS_ITS | Data Portability ---
Author Organization [place] [facility] Address [address] [place] [address] [address] [place] [address] Assessment Encounter Date Assessment Date Assessment LastModified by Organization Details LastModified Time 11/21/2020 11/21/2020 Unfortunately were unable to open the CD to be able to review his images of his recent MRI. We did review the report in detail with the patient and his mother who is with him today. Radiologist noted: grade 3 MCL sprain with complete disruption of the distal attachment. Bone contusions of the lateral tibial plateau and lateral femoral condyle consistent with injury. Impression: Grade 3 MCL sprain with instability. Reviewed MRI results in detail with the patient his mother who is present with him today. Advised them that I do believe due to his age, degree of the sprain, instability on exam that the recommendation would be to proceed with surgical repair. I will confirm this recommendation with Dr. Hernandez. In the meantime he will continue with supportive knee brace, may continue with light impact activities and range of motion. Utilize crutches if needed. Continue with [id number] Tylenol or ibuprofen intermittent ice and elevation if needed. Advised him not to play football or practice for the remainder of the year out of concerns of further injury. He expressed full understanding of this. He is scheduled to follow-up with an outside sports medicine orthopedic provider that participates within his insurance. I will reach back out to his mother after definitive recommendation from Dr. Hernandez. Not available 11/27/2020 12:42:48 Plan of Treatment Reminders Order Date Submit Date Provider Last Modified By Organization Details Last Modified Time Details Appointments None record ed. Lab None record ed. Referral None record ed. Procedures None record ed. Surgeries None record ed. Imaging None record ed. Medication Orders None record ed. Patient TargetsNo targets recorded. Patient InstructionsNo instructions recorded. Reason for Referral None Reported. Results Created Date Observation Date Name Description Value Unit Range Abnormal Flag Note LastModifiedBy Organization Detail LastModifiedTime 11/25/1911/21/2020 MRI, knee, w/o contr ast No observ ation record ed. [email or web address] Not Available 2020 09:13:59 Result Notes None recorded. Problems No Known Problems Procedures Surgical History None recorded. Imaging Results Imaging Date Name Status LastModified by Organiz ation Details LastModified Time 11/21/2020 MRI, knee, w/o contrast completed Information not available 11/27/2020 09:13:59 Procedure Notes None recorded. Medical Equipment None Reported. Allergies No known drug allergies Medications Name Sig Start Date Stop Date Status Note LastModified by Organization Details LastModified Time Zyrtec 11/22/19 active Not Available Not Available Not Avai lable albuterol sulf 90 mcg/actuatio n breath activated powder inhaler,sens or 11/22/19 active Not Available Not Available Not Avai lable Vitals None Recorded Social History Question Answer Notes LastModified by Organizat ion Details LastModified Time Tobacco Smoking Status Never Smoker May [facility] 11/21/2020 15:46:27 What Is Your Level Of Alcohol Consumption? None Information not available 11/21/2020 How Much Tobacco Do You Chew? None Information not available 11/21/2020 Which Illicit Or Recreational Drugs Have You Used? N/A Information not available 11/21/2020 Have You Ever Served In The Armed Forces? No Information not available 11/21/2020 What Is Your Relationship Status? Single Information not available 11/21/2020 At What Age Did You Start Smoking Tobacco? 0 Information not available 11/21/2020 How Much Tobacco Do You Smoke? No Information not available 11/21/2020 Sex: Unknown Functional Status None recorded. Mental Status None recorded. Family History Relationship Description Onset Age of this Age Resolved Age Notes LastModified by Organization Details LastModified Time Maternal Uncle Heart disease 30 Not available 2020 15:46:19 Paternal Grandfather History of hypertension 60 Not available 01/2021 15:46:19 Medical History Condition Response Asthma Y Past Encounters Encounter ID Performer Location Encounter Start Date Encounter Closed Date Diagnosis/Indication Diagnosis SNOMED-CT Code Diagnosis ICD10 Code Diagnosis Note [id number] Armando Hernandez MD Luci zepeda [address] [place] [address] 11/21/2020 15:00:21 11/21/2020 16:26:08 Sprain of medial collateral ligament of knee [id number] S83.411A Health Concerns Section Related Observation LastModified by Organization Detai ls LastModified Time None Recorded Concern Status LastModified by Organization Details LastModified Time None Recorded Advance Directives Directive None Recorded Payers Encounter Date Sequence Insurance Name Policy Number Policy Mckeon Covered Member ID Mckeon Member ID Guarantor Name 11/21/2020 1 *SELF PAY* Colin Cross Notes Date Note Type Note Provider Name and Address Organization Details Recorded Time text/html General OrthoReported bypatient.Hand Dominance:left Complaint/Problem today:My MCL hurts and was diagnosed by an outside MRI as a Grade 3 MCL sprain Date of injury/accident/onse t of problem:Date 11/10/2020; I got folded and my leg got caught and stuck under a pile during a football play Is the injury/problem work related?no Currently working?no; None List all treatment history for this problem/event:MRI and rehab Is pain localized or does it affect other body areas?localized Severity:pain level 4/10; worst pain 8/10; pain at best: 1/10 Other symptoms:tingling; weakness Have you seen one of our physicians in the past? If so, who?No For this recent injury/illness, have you had any of the following:MRI Patient is a 15-year-old male who presents today as a new patient with complaint of right knee pain or injury. 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 During his most recent game he was tackled resulting in his right knee being twisted awkwardly. Right away he had pain and feeling of instability. According to the workplace trainer and assessor who examined him on the field he had noticeable instability the medial aspect of his right knee. He was evaluated by a local emergency department. He was placed in a knee immobilizer. MRI of the right knee has already been performed at an outside facility. He is currently scheduled to follow-up with a orthopedic sports medicine provider with [place], patient has [employer] insurance. But his mother requested that we evaluate him as well and make our recommendations Therefore he presents today. Today states overall he has no pain of his right knee. He has been treating himself with supportive brace, ice, elevation, as needed majt-[id number] anti-inflammatories. He states when pain does occur it is at the medial aspect of the knee. No new injuries or traumatic events. No numbness, tingling, weakness of the right lower extremity. No previous right knee injuries. No other orthopedic complaints. No limitations on range of motion. Deyvi Cardona PA-C [address], [place], [address], [facility] 11/27/2020 12:43:04
--- OUTSIDE RECORDS SUMMARY | 2024-03-21 20:21 | XMS_ITS | Clinical Summary ---
Author Organization [facility] Address [address] [place] [address] Care Team Providers Care Dish Room Worker Name Role Phone Armando Vera MD Primary Care Provider [phone] Allergies No known active allergies Medications Medication [...] age to complete this topic Care Teams Dish Room Worker Relationship Specialty Start Date End Date Armando Vera MD [address] [place] [address] PCP - General Pediatrics 07/04/21
--- OUTSIDE RECORDS SUMMARY | 2024-03-21 20:21 | XMS_ITS | Encounter Summary ---
Author Organization [facility] [place] [address] Care Team Providers Care Office Machine Service Supervisor Name Role Phone Md Armando Vera M.D. Primary Care Provider Diana vailable Adult Hct, [place] Primary Care Provider [phone] Adult Hct, [place] Primary Care Provider Md Dayne [facility] Primary Care Provider [phone] Reason for Referral * Outpatient Service (Urgent) - Closed Specialty Diagnoses / Procedures Referred By Tj salas Referred To Contact Orthopaedics, Medicine Diagnoses RIGHT KNEE MEDIAL COLLATERAL LIGAMENT TEAR, INIT Procedures REFERRAL ORTHOPEDIC Md Armando Vera M.D. Pediatrics Health Care Team A [address] [place] [address] Referral ID Status Reason Start Date Expiration Date V isits Requested Visits Authorized [id number] Closed Specialty Services Required 11/20/2020 05/19/2021 1 1 Encounter Details Date Type Department Care Team (Late st Contact Info) Description 11/20/2020 Orders Only [facility] [address] [place] [address] Md Armando Vera M.D. RIGHT [...] INIT documented in this encounter Care Teams Office Machine Service Supervisor Relationship Specialty Start Date End Date Md Armando Vera M.D. PCP - General Pediatrics 10/13/20 09/25/23 Adult Hct, [facility] Health Care Team A [address] [place] [address] PCP - General Internal Medicine 09/26/23 09/26/23 Adult Hct, [facility] Health Care Team A [address] [place] [address], [place] [address] PCP - General Internal Medicine 09/27/23 12/10/23 Md Dayne [facility] DEPARTMENT OF PEDIATRICS [address] [place] [address] PCP - General Pediatrics 12/11/23 documented as of this encounter
--- OUTSIDE RECORDS SUMMARY | 2024-03-21 20:21 | XMS_ITS | Encounter Summary ---
Author Organization [place] [address] Care Team Providers Care Shear Tender Name Role Phone Md Armando Vera M.D. Primary Care Provider Diana vailable Adult Hct, [place] Primary Care Provider [phone] Adult Hct, [place] Primary Care Provider Md Dayne [facility] Primary Care Provider Reason for Visit * Reason Onset Date Comments VOMITING 09/11/2021 Encounter Details Date Type Department Care Team (Late st Contact Info) Description 09/11/2021 Telephone Call Center [facility] [place], [place] [id number] Staff, Support VOMITING Social History Tobacco Use [...] Provider: None Guideline Recommended and Member Disposition: [facility] Routine Home [place] - with Office visit [...] Reviewed in its section. Patient instructions: Per [facility] Advice RN available 02/09 including weekends and [...] on filedocumented in this encounter Care Teams Shear Tender Relationship Specialty Start Date End Date Md Armando Vera M.D. PCP - General Pediatrics 10/13/20 09/25/23 Adult Hct, [facility] Internal [facility] Health Care Team A [address] [place] [address] PCP - General Internal Medicine 09/26/23 09/26/23 Adult Hct, [facility] Health Care Team A [address] [place] [address], [place] [address] PCP - General Internal Medicine 09/27/23 12/10/23 Md Nora OscarSteph DEPARTMENT OF PEDIATRICS [address] [place] [address] PCP - General Pediatrics 12/11/23 documented as of this encounter
--- OUTSIDE RECORDS SUMMARY | 2024-03-21 20:21 | XMS_ITS | Encounter Summary ---
Author Organization [facility] [place] [address] Care Team Providers Care Case Making Machine Operator Name Role Phone Md Armando Vera M.D. Primary Care Provider Diana vailable Adult Hct, [place] Primary Care Provider [phone] Adult Hct, [place] Primary Care Provider [phone] Md Dayne [facility] Primary Care Provider Encounter Details Date Type Department Care Team (Late st Contact Info) Description 12/07/2020 Orders Only [facility] [address] [place] [address] Md Marlo Petersen Department of Orthopedics [address] [place] [phone] RIGHT KNEE MEDIAL COLLATERAL LIGAMENT TEAR, [...] INIT documented in this encounter Care Teams Case Making Machine Operator Relationship Specialty Start Date End Date Md Armando Vera M.D. PCP - General Pediatrics 10/13/20 09/25/23 Adult Hct, [facility] Internal [facility] Health Care Team A [address] [place] [address] PCP - General Internal Medicine 09/26/23 09/26/23 Adult Hct, [facility] Health Care Team A [facility] [place], [place], [place] [address] PCP - General Internal Medicine 09/27/23 12/10/23 Md Dayne [facility] DEPARTMENT OF PEDIATRICS [address] [place] [address] PCP - General Pediatrics 12/11/23 documented as of this encounter
--- OUTSIDE RECORDS SUMMARY | 2024-03-21 20:21 | XMS_ITS | Encounter Summary ---
Author Organization [facility] [place] [address] Care Team Providers Care Medical Information Specialist Name Role Phone Md Dayne [facility] Primary Care Provider [phone] Reason for Visit * Reason Comments LUMP Per patient, sister noticed bumps on the sides of each foot last night. Patient unsure of how long they have been there. No pain. Encounter Details Date Type Department Care Team (Late st Contact Info) Description 02/13/2024 10:30 AM EST Office Visit [facility] [address] [place] [address] Md Dayne [facility] DEPARTMENT OF PEDIATRICS [address] [place], [place] [id number] GANGLION CYST Social History Tobacco Use Types [...] Patient Instructions * Patient Instructions* Md Dayne [facility] - 02/13/2024 11:28 AM EST Images from the original note were not included. Patient Education [facility] Care Instructions [facility]: [...] Where can you learn more? Go to https://[email or web address].org/health Enter Y986 in the search box to learn more about [facility]: Care Instructions. Current as of: December 19, 2021 Content Version: 13.6 ?? [employer]. Care instructions adapted under license by your healthcare professional. If you have questions about a medical condition or this instruction, always ask your healthcare professional. [employer] disclaims any warranty or liability for your [...] CYST documented in this encounter Care Teams Medical Information Specialist Relationship Specialty Start Date End Date Md Dwayne Oscar DEPARTMENT OF PEDIATRICS [address] [facility] [place] [address] PCP - General Pediatrics 12/11/23 documented as of this encounter
--- OUTSIDE RECORDS SUMMARY | 2024-03-21 20:21 | XMS_ITS | Clinical Summary ---
Author Organization [facility] [place] [address] Care Team Providers Care Sprinkler Worker Name Role Phone Md Dayne [facility] Primary Care Provider [phone] Source Comments NOTE: The information displayed by Care Everywhere is extracted from the complete medical record and may not identify all current or past patient conditions.[facility] Allergies No known active allergies Medications Medication [...] Team Description 03/21/2024 Telephone Call Center [address] [place], [place] [id number] Staff, Support VOMITING 02/13/2024 10:30 AM EST Office Visit [facility] [address] [place], [place] [phone] Md Dayne [facility] GANGLION CYST from Last 3 Months [...] YRS) (1 - Male 3-dose series) 06/30/2019 [place] WELL VISIT FOR 3-21 YEARS 08/15/202306/2022, 08/28/2020, 09/20/2019, Additional history exists IMM COVID-19 (6 MO AND OLDER ) (3 - 2023-25 season) 2023 08/10/2021, 07/01/2021 IMM INFLUENZA (6 MO AND OLDE R) (#1) 10/12/2023 03/05/2018, 12/09/2016, 11/25/2013, Additional history exists IMM DTAP,TDAP,TD (42 DAYS-12 0 YRS) (7 - Td or Tdap) 09/09/2026 09/09/2016, 08/01/2009, 10/01/2005, Additional history exists Care Teams Sprinkler Worker Relationship Specialty Start Date End Date Md Dayne [facility] DEPARTMENT OF PEDIATRICS [address] [facility] [place] [address] PCP - General Pediatrics 12/11/23
--- OUTSIDE RECORDS SUMMARY | 2024-03-21 20:21 | XMS_ITS | Encounter Summary ---
Author Organization [facility] [place] [address] Care Team Providers Care Oil Spreader Operator Name Role Phone Md Armando Vera M.D. Primary Care Provider Diana vailable Adult Hct, [place] Primary Care Provider [phone] Adult Hct, [place] Primary Care Provider Md Dayne [facility] Primary Care Provider Encounter Details Date Type Department Care Team (Late st Contact Info) Description 08/06/2021 Refill [facility] [address] [place] [address] Md Deyvi Arredondo M.D. Department of Pediatrics [address] [place] [address] Medications Social History Tobacco Use [...] CYST documented in this encounter Care Teams Oil Spreader Operator Relationship Specialty Start Date End Date Md Armando Vera M.D. PCP - General Pediatrics 10/13/20 09/25/23 Adult Hct, [facility] Medicine Health Care Team A [address] [place] [address] PCP - General Internal Medicine 09/26/23 09/26/23 Adult Hct, [facility] Medicine Health Care Team A [facility] [place], [place], [place] [address] PCP - General Internal Medicine 09/27/23 12/10/23 Md Dayne [facility] DEPARTMENT OF PEDIATRICS [address] [place] [address] PCP - General Pediatrics 12/11/23 documented as of this encounter
--- OUTSIDE RECORDS SUMMARY | 2024-03-21 20:21 | XMS_ITS | Clinical Summary ---
Author Organization [employer] [facility] Address [place], [place] [address] Care Team Providers Care Metal Furniture Glazier Name Role Phone Pcp, No Primary Care [...] this topic Insurance [employer] PPO Care Teams Metal Furniture Glazier Relationship Specialty Start Date End Date Pcp, No . PCP - General 09/25/22
--- OUTSIDE RECORDS SUMMARY | 2024-03-21 20:21 | XMS_ITS | Encounter Summary ---
Author Organization [facility] [place] [address] Care Team Providers Care Broadband Technician Name Role Phone Md Armando Vera M.D. Primary Care Provider Diana vailable Adult Hct, [place] Primary Care Provider [phone] Adult Hct, [place] Primary Care Provider Md Dayne [facility] Primary Care Provider [phone] Encounter Details Date Type Department Care Team (Late st Contact Info) Description 06/03/2021 Telephone Call Center [address] [place] [address] Staff, Support Social History Tobacco Use [...] on filedocumented in this encounter Care Teams Broadband Technician Relationship Specialty Start Date End Date Md Armando Vera M.D. PCP - General Pediatrics 10/13/20 09/25/23 Adult Hct, [facility] Health Care Team A [address] [place] [address] PCP - General Internal Medicine 09/26/23 09/26/23 Adult Hct, [place] [facility] Health Care Team A [facility] [place], [place], [place] [address] PCP - General Internal Medicine 09/27/23 12/10/23 Md Dwayne Oscar DEPARTMENT OF PEDIATRICS [address] [place] [address] PCP - General Pediatrics 12/11/23 documented as of this encounter
--- OUTSIDE RECORDS SUMMARY | 2024-03-21 20:21 | XMS_ITS | Encounter Summary ---
Author Organization [facility] [place] [address] Care Team Providers Care Qa Engineer Name Role Phone Md Armando Vera M.D. Primary Care Provider Diana vailable Adult Hct, [place] Primary Care Provider [phone] Adult Hct, [place] Primary Care Provider Md Dayne [facility] Primary Care Provider Encounter Details Date Type Department Care Team (Late st Contact Info) Description 10/01/2021 Orders Only [facility] [address] [place] [phone] Md Bert Shea M.D. Pediatrics Health Care Team A [address] [place] [address], [address] [place] [address] ACUTE SINUSITIS Social History Tobacco [...] SINUSITIS documented in this encounter Care Teams Qa Engineer Relationship Specialty Start Date End Date Md Armando Vera M.D. PCP - General Pediatrics 10/13/20 09/25/23 Adult Hct, [facility] Internal Medicine Health Care Team A [address] [place] [address] PCP - General Internal Medicine 09/26/23 09/26/23 Adult Hct, [facility] Health Care Team A [facility] [place], [place], [place] [address] PCP - General Internal Medicine 09/27/23 12/10/23 Md Dayne [facility] DEPARTMENT OF PEDIATRICS [address] [place] [address] PCP - General Pediatrics 12/11/23 documented as of this encounter
--- OUTSIDE RECORDS SUMMARY | 2024-03-21 20:21 | XMS_ITS | Continuity of Care Document ---
Author Organization [facility] Address [address] [place] [address] Phone Care Team Providers Care Building Insulation Supervisor Name Role Phone Unavailable Unavailable Unavailable Allergies, [...] on Encounter Offic Cons New/estab Mod-hi [address] [facility], [address] [place], [place], [id number], tel:[phone] [facility] [address] Penile concerns (peds) (chief complaint) Penile Pain No Information Referring Provider: Gamal Chong, [address] [place], [address]. tel:[phone] Family History Family Member Type Diagnosis Age At Onset No Information Payers Payer name Insurance type Covered democrat ID Trena slater(s) [employer] [facility] [place] [id number] Social History Type Description Quantity Date Captured [...] Mental Status Date Cognitive Assessment Orientation - [place] ed to time, place, person, situation.Normal Orientation Patient Care Teams Name Effective Dates (start - stop) Status Members No Information
--- OUTSIDE RECORDS SUMMARY | 2024-03-21 20:21 | XMS_ITS | Encounter Summary ---
Author Organization [facility] [place] [address] Care Team Providers Care Commercial Sales Specialist Name Role Phone Md Armando Vera M.D. Primary Care Provider Diana vailable Adult Hct, [place] Primary Care Provider [phone] Adult Hct, [place] Primary Care Provider Md Dayne [facility] Primary Care Provider Encounter Details Date Type Department Care Team (Late st Contact Info) Description 08/02/2021 Refill [facility] [address] [place] [address] Md Deyvi Arredondo M.D. Department of Pediatrics [address] [place] [address] Medications Social History Tobacco Use [...] CYST documented in this encounter Care Teams Commercial Sales Specialist Relationship Specialty Start Date End Date Md Armando Vera M.D. PCP - General Pediatrics 10/13/20 09/25/23 Adult Hct, [facility] Internal Medicine Health Care Team A [address] [place] [address] PCP - General Internal Medicine 09/26/23 09/26/23 Adult Hct, [facility] Medicine Health Care Team A [facility] [place], [place], [place] [address] PCP - General Internal Medicine 09/27/23 12/10/23 Md Dayne [facility] DEPARTMENT OF PEDIATRICS [address] [place] [address] PCP - General Pediatrics 12/11/23 documented as of this encounter
--- OUTSIDE RECORDS SUMMARY | 2024-03-21 20:21 | XMS_ITS | Encounter Summary ---
Author Organization [facility] [place] [address] Care Team Providers Care Livestock Laborer Name Role Phone Md Dayne [facility] Primary Care Provider [phone] Reason for Visit * Reason Onset Date Comments VOMITING 03/21/2024 Encounter Details Date Type Department Care Team (Late st Contact Info) Description 03/21/2024 Telephone Call Center [address] [place], [place] [phone] Staff, Support VOMITING Social History Tobacco Use [...] Provider: None Guideline Recommended and Member Disposition: [facility] Emergent: (30 min to 2 hours) [...] Patient instructions:Advised closest ER or UC with hazardous materials driver . If emergency call 911. CALLER ADVICE UNDERSTANDING/AGREEMENT: Member given opportunity to ask questions/make comments. Yes Member provided Teach back/ advice instructions. Yes documented in this encounter Plan of Treatment Not on file documented as of this encounter Visit Diagnoses Not on filedocumented in this encounter Care Teams Livestock Laborer Relationship Specialty Start Date End Date Md Dayne [facility] DEPARTMENT OF PEDIATRICS [address] [place] [address] PCP - General Pediatrics 12/11/23 documented as of this encounter
== END 2024-03-21 20:19 | disposition left against medical advice (07) ==
LOC: ED 20:19
DX: R05.9 Cough, unspecified (principal); Z53.21 Procedure and treatment not carried out due to patient leaving prior to being seen by health care provider